=== PATIENT | male | born 1985 | race African-American/Black ===

== ENCOUNTER 2018-01-25 19:49 | Emergency (ER) | payer MEDICAID, OTHER ==
[~2018-01-25] VITALS: Ht 152.4 cm; Wt 95.3 kg
[2018-01-25 19:59] VITALS: BP 167/88
== END 2018-01-26 00:30 | disposition left against medical advice (07) ==
LOC: ER 19:49
DX: S61.216A Laceration without foreign body of right little finger without damage to nail, initial encounter (principal); Z53.21 Procedure and treatment not carried out due to patient leaving prior to being seen by health care provider; W26.8XXA Contact with other sharp object(s), not elsewhere classified, initial encounter; Y93.89 Activity, other specified; Y92.89 Other specified places as the place of occurrence of the external cause; Y99.8 Other external cause status